=== PATIENT | male | born 1995 | race Caucasian/White ===

== ENCOUNTER 2022-02-26 09:13 | Emergency (ER) | payer BC ==
[2022-02-26] MEDS ORDERED: Diphtheria,Pertussis(Acell),Tetanus Vaccine 0.5 ML Syringe IM ONE (09:49)
[2022-02-26] MEDS ORDERED: Bacitracin Oint 1 GM U/D Packet TOP ONE (09:49)
== END 2022-02-26 10:33 | disposition home or self-care (01) ==
LOC: FB.ED 09:13
DX: S61.212A Laceration without foreign body of right middle finger without damage to nail, initial encounter (principal); Z88.0 Allergy status to penicillin; Z23 Encounter for immunization; W26.8XXA Contact with other sharp object(s), not elsewhere classified, initial encounter
CPT/HCPCS: 90471; 90715; 99281; 99282

== ENCOUNTER 2023-03-20 12:21 | Emergency (ER) | payer BC ==
[2023-03-20] MEDS ORDERED: Ondansetron 4 MG/2 ML SDV IVPUSH ONE (12:44)
[2023-03-20] MEDS ORDERED: Sodium Chloride 0.9% 10 ML Syringe FLUSH PRN (12:44)
[2023-03-20] MEDS ORDERED: Sodium Chloride 0.9% 1,000 ML IV SCH (12:45)
[2023-03-20 13:13] LABS: BASOPHILS PERCENT AUTO 0.1 % (0.3-3.8); EOSINOPHILS PERCENT AUTO 0.2 % (0.1-6.8); HEMATOCRIT 43.7 % (38.3-50.1); HEMOGLOBIN 15.1 g/dL (12.9-17.7); LYMPHOCYTES ABSOLUTE AUTO 0.8 x10-3/uL (0.5-4.5); LYMPHOCYTES PERCENT AUTO 7.5 % (15.8-45.3); MEAN CORPUSCULAR HEMOGLOBIN 29.6 pg (27.0-33.3); MEAN CORPUSCULAR HGB CONC 34.5 g/dL (28.7-35.3); MEAN CORPUSCULAR VOLUME 85.7 fL (80.8-98.7); MEAN PLATELET VOLUME 8.2 fL (6.7-11.0); MONOCYTES ABSOLUTE AUTO 1.2 x10-3/uL (0.0-1.2); NEUTROPHILS PERCENT AUTO 81.2 % (40.3-71.8); PLATELET COUNT,PLT 187 x10(3)uL (117-477); RED BLOOD CELL COUNT 5.09 x10(6)uL (3.90-5.90); RED CELL DISTRIBUTION WIDTH 13.1 % (12.4-15.0); WHITE BLOOD CELL COUNT,WBC 11.1 x10-3/uL (3.2-10.1)
[2023-03-20 13:24] LABS: BLOOD UREA NITROGEN,BUN 8 mg/dL (7-18); BUN/CREATININE RATIO 6.7 (9-20); CALCIUM 8.4 mg/dL (8.6-10.2); CARBON DIOXIDE,CO2 29 mmol/L (21-32); CHLORIDE,CL 99 mmol/L (100-110); CREATININE 1.2 mg/dL (0.70-1.30); ESTIMATED GFR 84 mL/min (>60); GLUCOSE RANDOM 111 mg/dL (80-116); POTASSIUM,K 3.2 mmol/L (3.5-5.3); SODIUM,NA 136 mmol/L (135-145)
[2023-03-20] MEDS ORDERED: Potassium Chloride 20 MEQ Tab.ER PO STA (13:45)
== END 2023-03-20 14:24 | disposition home or self-care (01) ==
LOC: FB.ED 12:21
DX: K52.9 Noninfective gastroenteritis and colitis, unspecified (principal); E86.0 Dehydration; E87.6 Hypokalemia; Z88.0 Allergy status to penicillin
CPT/HCPCS: 36415; 80048; 85025; 96361; 96374; 99284; A9270; J2405; J3490; J7030